=== PATIENT | female | born 1965 | race Two or more races ===

== ENCOUNTER 2023-12-10 07:34 | Day surgery (SDC) | payer MEDICAID ==
[2023-10-29 14:56] LABS: Urine Epithelial Cast None Seen /hpf (<5)
[2023-10-29 15:08] LABS: Hematocrit 41.7 % (36.0-46.0); Hemoglobin 13.7 g/dL (12.2-16.2); Mean Corpuscular Hemoglobin 29.3 pg (28.0-32.0); Mean Corpuscular Volume 88.8 fL (80.0-100.0); Red Cell Distribution Width 13.5 % (11.8-14.3); White Blood Cell 9.9 10^3/uL (4.4-10.8)
[2023-10-29 15:29] LABS: Urine Bacteria NONE SEEN /hpf (None Seen); Urine Blood Negative /uL (Negative); Urine Clarity Clear (Clear); Urine Color Yellow (Yellow); Urine Mucus FEW (None Seen); Urine Protein, UAD Negative (Negative); Urine Specific Gravity 1.023 (1.001-1.035); Urine Urobilinogen Normal (Negative); Urine WBC 3 /hpf (0 - 5); Urine pH 6.5 (5.0-8.0)
[2023-10-29 15:32] LABS: INR 0.99 (0.9-1.15); Partial Thromboplastin Time 26.6 SEC (24.5-34.5); Prothrombin Time 10.4 sec (9.3-11.8)
[2023-10-29 15:40] LABS: Basophils % (manual) 0 (0.0-2.0); Blast Cells 0; Myelocytes % 0; Promyelocytes % 0; Reactive Lymphocytes 0
[2023-10-29 15:55] LABS: Alanine Aminotransferase 38 U/L (7-40); Alkaline Phosphatase 107 U/L (46-116); Anion Gap 9 (5-15); BUN/Creatinine Ratio 16.9 (10.0-20.0); Blood Urea Nitrogen 14 mg/dL (9-23); Calcium 10.2 mg/dL (8.5-10.1); Carbon Dioxide 27 mmol/L (20-30); Chloride 104 mmol/L (98-107); Glucose 148 mg/dL (74-106); Potassium 4.4 mmol/L (3.5-5.1); Sodium 140 mmol/L (136-145)
[2023-10-29 15:56] LABS: Albumin 4.8 g/dL (3.2-4.8); Aspartate Aminotransferase 17 U/L (13-40); Bilirubin, Total 0.7 mg/dL (0.2-1.0); Total Protein 7.7 g/dL (5.7-8.2)
[2023-10-29 18:48] LABS: Band Neutrophils % (manual) 8; Eosinophils % (manual) 1 (0-7); Lymphocytes % (manual) 29 (10.0-50.0); Metamyelocytes % 2; Monocytes % (manual) 4 (0-12)
[2023-10-29 18:49] LABS: Platelet Estimate Adequate
[2023-12-03 10:52] LABS: Urine Epithelial Cast None Seen /hpf (<5)
[2023-12-03 10:58] LABS: Basophils # (auto) 0 10 ^3/uL (0-0.2); Basophils % (auto) 0.4 % (0.0-2.0); Eosinophils # (auto) 0.3 10 ^3/uL (0-0.8); Eosinophils % (auto) 3.1 % (0.0-7.0); Hematocrit 41.9 % (36.0-46.0); Hemoglobin 13.7 g/dL (12.2-16.2); Lymphocytes # (auto) 3.8 10 ^3/uL (0.4-5.4); Lymphocytes % (auto) 41.2 % (10.0-50.0); Mean Corpuscular Hemoglobin 28.8 pg (28.0-32.0); Mean Corpuscular Hgb Conc. 32.8 g/dL (32.0-36.0); Mean Corpuscular Volume 87.8 fL (80.0-100.0); Monocytes # (auto) 0.7 10 ^3/uL (0-1.3); Monocytes % (auto) 7.3 % (0.0-12.0); Neutrophils # (auto) 4.5 10 ^3/uL (1.6-8.6); Nucleated Red Blood Cells % 0.2 %; Red Blood Cells 4.77 10^6/uL (4.0-5.20); White Blood Cell 9.3 10^3/uL (4.4-10.8)
[2023-12-03 11:12] LABS: Urine Bacteria FEW /hpf (None Seen); Urine Blood Negative /uL (Negative); Urine Clarity Clear (Clear); Urine Color Yellow (Yellow); Urine Mucus FEW (None Seen); Urine Protein, UAD Negative (Negative); Urine Specific Gravity 1.021 (1.001-1.035); Urine Urobilinogen Normal (Negative); Urine WBC 2 /hpf (0 - 5); Urine pH 5.5 (5.0-8.0)
[2023-12-03 11:16] LABS: Alanine Aminotransferase 36 U/L (7-40); Alkaline Phosphatase 111 U/L (46-116); Anion Gap 5 (5-15); Aspartate Aminotransferase 22 U/L (13-40); BUN/Creatinine Ratio 18.5 (10.0-20.0); Blood Urea Nitrogen 17 mg/dL (9-23); Carbon Dioxide 27 mmol/L (20-30); Chloride 109 mmol/L (98-107); Glucose 133 mg/dL (74-106); Potassium 4.4 mmol/L (3.5-5.1); Sodium 141 mmol/L (136-145)
[2023-12-03 11:17] LABS: Albumin 4.7 g/dL (3.2-4.8); Total Protein 7.8 g/dL (5.7-8.2)
[2023-12-03 11:29] LABS: Partial Thromboplastin Time 28.6 SEC (24.5-34.5); Prothrombin Time 10.5 sec (9.3-11.8)
[~2023-12-10] VITALS: Ht 157.5 cm; Wt 81.2 kg
[~2023-12-10 07:34] MED LIST: ASCO500T11 PO; ASPI81CH59 PO; ATOR80TA PO; AZEL0.054 OP; CARV6.2551 PO; CHOL20007 OR; CLOP75TA70 PO; DOCU-94 PO; FAMO-68 PO; FLUT50SP; INSU100I4 SC; INSUINJ37 SC; LEV50T PO; LORA-622 PO; LOSA25TA15 PO; NITR0.4S29 SL; SEMA14TA2 PO
[2023-12-10] MEDS ORDERED: LIDOCAINE 1% INJ PF 5ML AMP ONE (08:29)
[2023-12-10] MEDS ORDERED: PROPOFOL 10 MG/ML 20 ML IV ONE ×2 (08:29→09:07)
[2023-12-10 09:15] VITALS: PULSE 79; RESP 20; TEMP 97.8; O2SAT 99
[2023-12-10 09:45] VITALS: BP 115/49; PULSE 77; RESP 19; O2SAT 97
== END 2023-12-10 10:06 | disposition home or self-care (01) ==
LOC: GI 07:34
PROVIDERS: ATTEND Internal Medicine Gastroenterology
DX: R10.9 Unspecified abdominal pain (principal); K62.5 Hemorrhage of anus and rectum; K57.30 Diverticulosis of large intestine without perforation or abscess without bleeding; K62.89 Other specified diseases of anus and rectum; Z86.010 Personal history of colon polyps; K64.8 Other hemorrhoids; I25.10 Atherosclerotic heart disease of native coronary artery without angina pectoris; E11.9 Type 2 diabetes mellitus without complications; I10 Essential (primary) hypertension; Z95.1 Presence of aortocoronary bypass graft; Z95.5 Presence of coronary angioplasty implant and graft; Z98.890 Other specified postprocedural states
CPT/HCPCS: 36415; 45380; 80053; 81001; 82962; 85007; 85025; 85027; 85610; 85730; J2704; J7030

== ENCOUNTER 2024-03-06 19:34 | Emergency (ER) | payer MEDICAID, OTHER ==
[~2024-03-06] VITALS: Ht 157.5 cm; Wt 73.2 kg
[~2024-03-06 19:34] MED LIST changes: +LOSA-533 PO; -LOSA25TA15 PO
[2024-03-06] MEDS ORDERED: CYCL-839 PO (22:33)
[2024-03-06] MEDS: ACETAMINOPHEN 500 MG TAB PO ONE (22:49)
[2024-03-06 23:07] VITALS: BP 127/67; PULSE 73; RESP 18; TEMP 98.7; O2SAT 98
== END 2024-03-06 23:10 | disposition home or self-care (01) ==
LOC: ER 19:34
DX: M79.604 Pain in right leg (principal); M79.605 Pain in left leg; M79.651 Pain in right thigh; Z79.899 Other long term (current) drug therapy; V49.59XA Passenger injured in collision with other motor vehicles in traffic accident, initial encounter; Y93.89 Activity, other specified; Y92.89 Other specified places as the place of occurrence of the external cause; Y99.8 Other external cause status